=== PATIENT | female | born 1935 | race Caucasian/White ===

== ENCOUNTER 2019-01-06 19:39 | Emergency (ER) | payer OTHER ==
[~2019-01-06] VITALS: Ht 157.5 cm; Wt 67.1 kg
[~2019-01-06 19:39] MED LIST: AMITRIPTYLINE H25 M2 PO; ASPIRIN EC81 M1 PO; BIOFREEZE PAI3840 GM TOP; CELEBREX 200 M200 MG PO; CIPRO500 MG PO; DARVOCET A5001 EAC1 PO; DIPHENOXYLATE/A1 TA1 PO; FISH OIL 1,001000 M2 PO; FISH OIL SOFTG1 EACH PO; FLAGYL500 MG PO; GINKGO BILOBA120 MG PO; GLUCOPHAGE500 MG PO; GLYBURIDE 5 MG T5 M1 GT; GLYBURIDE 5 MG T5 MG; MULTIVITAMINS PO; NEURONTIN 400400 M1 PO; NORCO 5-325 TA1 EACH PO; PREDNISONE50 MG PO; VITCB500GO PO; [UNRECOGNIZED DRUG - OTHER] TOP
[2019-01-06] MEDS ORDERED: LISINOPRIL2.5 MG PO (19:52)
[2019-01-06] MEDS ORDERED: LIPITOR 20 MG T20 M1 PO (19:52)
[2019-01-06] MEDS ORDERED: BENTYL 20 MG TA20 M1 PO (19:53)
[2019-01-06 20:34] LABS: ABSOLUTE BASOPHILS 0.1 thou/uL (0.0-0.2); ABSOLUTE EOSINOPHILS 0.7 thou/uL (0.0-0.7); ABSOLUTE NEUTROPHILS 5.5 thou/uL (1.6-8.1); BASOPHILS 0.7 %; EOSINOPHILS 7.5 %; LYMPHOCYTES 21.9 %; MCH 31.4 pg (26.0-34.0); MCHC 34.5 g/dL (28.0-37.0); MONOCYTES 11.1 %; MPV 6.9 fl. (7.2-11.1); NUCLEATED RBCS 0 /100WBC; PLATELET COUNT* 131 thou/uL (150-400); POLYS 58.8 %; RBC 3.19 mil/uL (4.20-5.00); RDW-CV 12.6 % (10.5-14.5); WBC 9.3 thou/uL (4.0-11.0)
[2019-01-06 20:40] LABS: ANION GAP 11 mmol/L (7-16); BUN 26 mg/dL (7-18); CALCIUM 8.9 mg/dL (8.5-10.1); CHLORIDE 102 mmol/L (98-107); CO2 24 mmol/L (21-32); CREATININE 1.3 mg/dL (0.6-1.3); GLUCOSE 126 mg/dL (70-99); POTASSIUM 4.5 mmol/L (3.5-5.1); SODIUM 137 mmol/L (136-145)
[2019-01-06 20:57] LABS: ALBUMIN 3.3 g/dL (3.4-5.0); ALKALINE PHOSPHATASE 56 U/L (46-116); NT-PRO BRAIN NAT PEPTIDE 393 pg/mL (<300); SGOT 23 U/L (15-37); SGPT 19 U/L (30-65); TOTAL BILIRUBIN 0.8 mg/dL (<0.1-1.0); TOTAL PROTEIN 6.8 g/dL (6.4-8.2); TROPONIN-I LEVEL <0.06 ng/mL (<0.06)
[2019-01-06] MEDS ORDERED: PREDNISONE50 MG PO (21:45)
[2019-01-06] MEDS ORDERED: PROAIR HFA8.5 GM INH (21:45)
[2019-01-06] MEDS ORDERED: BACTRIM DS TAB1 EACH PO (21:48)
[2019-01-06 22:03] VITALS: BP 126/66
--- NOTE | 2019-01-09 12:17 | EKG ---
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 : 1935 Requested By: Yamila London Order Number: [id number] MD: Leopoldo Marcelino Measurements Intervals [place] Rate: 61 P: 26 SC: 185 QRS: -26 QRSD: 99 T: 6 QT: 446 QTc: 450 Interpretive Statements Sinus rhythm Borderline left axis deviation Abnormal R-wave progression, early transition Compared to ECG 08/07/2016 18:44:41 T-wave abnormality no longer present Prolonged QT interval no longer present Electronically Signed On 01-09-2019 12:17:18 CDT by Leopoldo Marcelino [email or web address] <ELECTRONICALLY SIGNED> By: Leopoldo Marcelino MD, [facility] 01/09/19 1217 14 14 Leopoldo Marcelino MD, [facility] /EPI
== END 2019-01-06 22:04 | disposition home or self-care (01) ==
LOC: M.ERS 19:39
PROVIDERS: Emergency Medicine
DX: T65.891A Toxic effect of other specified substances, accidental (unintentional), initial encounter (principal); J68.0 Bronchitis and pneumonitis due to chemicals, gases, fumes and vapors; E11.9 Type 2 diabetes mellitus without complications; M19.90 Unspecified osteoarthritis, unspecified site; M79.7 Fibromyalgia; Z90.49 Acquired absence of other specified parts of digestive tract; Z90.710 Acquired absence of both cervix and uterus; Z88.0 Allergy status to penicillin; Z88.5 Allergy status to narcotic agent; Z88.8 Allergy status to other drugs, medicaments and biological substances

== ENCOUNTER 2019-01-15 17:00 | Inpatient (IN) | payer OTHER ==
[~2019-01-15] VITALS: Ht 157.5 cm; Wt 68.0 kg
[~2019-01-15 17:00] MED LIST changes: +BACTRIM DS TAB1 EACH PO; +BENTYL 20 MG TA20 M1 PO; +LIPITOR 20 MG T20 M1 PO; +LISINOPRIL2.5 MG PO; +PROAIR HFA8.5 GM INH
[2019-01-15 17:08] VITALS: BP 69/44
[2019-01-15 17:25] LABS: HEMATOCRIT 37.2 % (37.0-47.0); HEMOGLOBIN 12.5 gm/dL (12.0-15.0); MCH 30.5 pg (26.0-34.0); MCHC 33.7 g/dL (28.0-37.0); MCV 90.4 fL (80.0-100.0); MPV 6.8 fl. (7.2-11.1); NUCLEATED RBCS 0 /100WBC; PLATELET COUNT* 278 thou/uL (150-400); RBC 4.12 mil/uL (4.20-5.00); RDW-CV 12.8 % (10.5-14.5)
[2019-01-15 17:32] LABS: ANION GAP 9 mmol/L (7-16); BUN 35 mg/dL (7-18); CALCIUM 8.5 mg/dL (8.5-10.1); CHLORIDE 95 mmol/L (98-107); CO2 25 mmol/L (21-32); CREATININE 1.5 mg/dL (0.6-1.3); GLUCOSE 335 mg/dL (70-99); POTASSIUM 4.6 mmol/L (3.5-5.1); SODIUM 129 mmol/L (136-145)
[2019-01-15 17:42] LABS: ALBUMIN 3.3 g/dL (3.4-5.0); ALKALINE PHOSPHATASE 70 U/L (46-116); SGOT 21 U/L (15-37); SGPT 44 U/L (30-65); TOTAL BILIRUBIN 0.8 mg/dL (<0.1-1.0); TOTAL PROTEIN 6.8 g/dL (6.4-8.2); TROPONIN-I LEVEL <0.06 ng/mL (<0.06)
[2019-01-15 17:50] LABS: PROTIME 10.1 Seconds (9.20-11.50)
[2019-01-15 17:52] LABS: ABSOLUTE EOSINOPHILS 0.3 thou/uL (0.0-0.7); ABSOLUTE LYMPHOCYTES 1.9 thou/uL (0.8-5.3); ABSOLUTE NEUTROPHILS 12.8 thou/uL (1.6-8.1)
[2019-01-15 17:53] LABS: PLATELET ESTIMATE ADEQUATE
--- NOTE | 2019-01-15 18:09 | NUR ---
PT STRAIGHT CATHED FOR URINE SAMPLE
[2019-01-15 18:15] LABS: URINE BILIRUBIN NEGATIVE (Negative); URINE BLOOD NEGATIVE (Negative); URINE CLARITY CLEAR; URINE COLOR YELLOW; URINE GLUCOSE-RANDOM 2+ (Negative); URINE KETONES NEGATIVE (Negative); URINE LEUKOCYTES-REFLEX NEGATIVE (Negative); URINE NITRITE-REFLEX NEGATIVE (Negative); URINE PROTEIN NEGATIVE (Negative); URINE UROBILINOGEN 0.2 E.U./dl (0.2-1.0)
[2019-01-15 19:57] VITALS: BP 100/55
[2019-01-15 20:15] VITALS: BP 125/62
[2019-01-16] VITALS: BP 117/50
--- NOTE | 2019-01-16 03:40 | NUR ---
RECEIVED REPORT AND ASSUMED CARE AT 1999. PT TRANSPORTED FROM ED TO ROOM 212.VSS. CARDIAC MONITORING IN PLACE. PT DENIES COMPLAINTS OF PAIN. ORIENTATED TO ROOM, CALL LIGHT, FALL POLICY. PT UP WITH ASSIST TO BSC.ON RA. ASSESSMENT COMPLETED CHARTED, ADMISSION COMPLETED CHARTED. BED LOCKED IN LOWEST POSITION, CALL LIGHT WITHIN REACH, BED ALARM ON
[2019-01-16 04:00] VITALS: BP 102/51
[2019-01-16 06:06] LABS: ALBUMIN 2.6 g/dL (3.4-5.0); CALCIUM 8.2 mg/dL (8.5-10.1); POTASSIUM 5.1 mmol/L (3.5-5.1); TOTAL BILIRUBIN 0.6 mg/dL (<0.1-1.0); TOTAL PROTEIN 6.1 g/dL (6.4-8.2)
[2019-01-16 08:00] VITALS: BP 108/54
[2019-01-16 08:15] LABS: HEMATOCRIT 33.9 % (37.0-47.0); HEMOGLOBIN 11.5 gm/dL (12.0-15.0); MCH 30.8 pg (26.0-34.0); MCV 90.6 fL (80.0-100.0); MPV 6.7 fl. (7.2-11.1); RBC 3.74 mil/uL (4.20-5.00); RDW-CV 12.7 % (10.5-14.5); WBC 10.6 thou/uL (4.0-11.0)
--- NOTE | 2019-01-16 09:59 | NUR ---
assumed pt care at 0730, full assesment done as charted. pt a/o x4, states she is "feeling better", VSS, SR on the monitor. pt up with assist to BR. maintains isolation precautions for possible shingles. pt has good apitite. up to chair for bath this am. will continue with plan of care.
[2019-01-16 11:54] VITALS: BP 123/74
--- NOTE | 2019-01-16 16:02 | NUR ---
Pt is A&O. Resides at home alone. Independent. Pt uses a cane for mobility, Pt also has a wc that she can use. No hx of HH. Hx of skilled at [facility] at [place]. Goal is home at or, Pt would want to return to [facility] if skilled is needed. Following.
[2019-01-16 16:04] VITALS: BP 107/50
--- NOTE | 2019-01-16 16:08 | EKG ---
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 01/16/19 1608 1718 Esteban Laws MD, [facility] /EPI
--- NOTE | 2019-01-16 19:07 | NUR ---
PT PROGRESSING TOWARD GOALS. UP WITH PT THIS AFTERNOON. STATES SHE IS STILL FEELING WEAK AND WANTS"TO FIND OUT WHAT IS WRONG WHILE I AM HERE". PT HAS GOOD APITITE. VSS, REMAINS SR ON THE MONITOR. FALL PRECAUTIONS IN PLACE. ISOLATION MAINTAINED FOR POSSIBLE SHINGLES.
[2019-01-16 19:30] VITALS: BP 130/97
--- NOTE | 2019-01-16 23:56 | NUR ---
RECEIVED REPORT AND ASSUMED CARE AT 1900. VSS. CARDIAC MONITORING IN PLACE. PT DENIES COMPLAINTS OF PAIN. ASSESSMENT COMPLETED CHARTED. PT UP WITH ASSIST WITH WALKER TO THE BATHROOM, ON RA. BED LOCKED IN LOWEST POSITION, CALL LIGHT WITHIN REACH, BED ALARM ON.
[2019-01-17] VITALS: BP 128/60
[2019-01-17 04:00] VITALS: BP 111/61
[2019-01-17 05:32] LABS: CREATININE 1.1 mg/dL (0.6-1.3); MAGNESIUM 1.9 mg/dL (1.8-2.4); POTASSIUM 5.1 mmol/L (3.5-5.1)
[2019-01-17 08:40] VITALS: BP 121/61
--- NOTE | 2019-01-17 10:24 | NUR ---
RECEIVED REPORT FROM RILEY AND ASSUMED CARE OF PT @ 2624.PT IS A/O X4,VSS,TRACING SR ON THE MONITOR.IV PATENT AND SALINE LOCKED.PT IS CALM AND COOPERATIVE WITH NO C/O PAIN.CONTACT ISOLATION MAINTAINED.PT IS UP WITH ASSIST AND WALKER.PT LEFT RESTING IN BED WITH CALL LIGHT AND FALL PRECAUTIONS IN PLACE.WILL CONTINUE TO MONITOR.
[2019-01-17 10:28] VITALS: BP 121/61
--- NOTE | 2019-01-17 10:32 | NUR ---
Pt discharging to home today with HH. Pt chose [facility], waiting to see if they can accept Pt for HH. Faxed order for walker to Margi at [facility], walker should be delivered within the hour.
--- NOTE | 2019-01-17 11:02 | NUR ---
PT OK FOR DISCHARGE.PAPERWORK COMPLETED AND GIVEN TO THE PT.NO SCRIPTS GIVEN.HOME HEALTH SET UP BY CASE MANAGEMENT.IV REMOVED.HEART MONITOR REMOVED AND RETUNRED TO THE NURSING STATION.ALL PERSONAL BELONGINGS PACKED AND TAKEN WITH PT.PT WHEELED OUT BY NURSING STAFF TO PERSONAL VEHICLE.
== END 2019-01-17 12:05 | disposition home health service (06) | DRG 73 ==
LOC: M.ERS 17:00 → M.TBA-ER 18:35 → M.2W 18:35
PROVIDERS: Family Medicine; Internal Medicine; Physician Assistant; ADMIT Internal Medicine
DX: E11.43 Type 2 diabetes mellitus with diabetic autonomic (poly)neuropathy (principal); N17.0 Acute kidney failure with tubular necrosis; E87.1 Hypo-osmolality and hyponatremia; E44.0 Moderate protein-calorie malnutrition; I95.2 Hypotension due to drugs; E86.9 Volume depletion, unspecified; B02.9 Zoster without complications; M79.7 Fibromyalgia; E11.40 Type 2 diabetes mellitus with diabetic neuropathy, unspecified; M19.90 Unspecified osteoarthritis, unspecified site; T67.9XXA Effect of heat and light, unspecified, initial encounter; X58.XXXA Exposure to other specified factors, initial encounter; J45.909 Unspecified asthma, uncomplicated; R29.6 Repeated falls; I10 Essential (primary) hypertension; Z79.899 Other long term (current) drug therapy; Z88.5 Allergy status to narcotic agent; Z88.7 Allergy status to serum and vaccine; Z88.8 Allergy status to other drugs, medicaments and biological substances; Z88.1 Allergy status to other antibiotic agents; Z91.012 Allergy to eggs; Z91.040 Latex allergy status; Z90.49 Acquired absence of other specified parts of digestive tract; Z68.27 Body mass index [BMI] 27.0-27.9, adult; Z86.718 Personal history of other venous thrombosis and embolism; Z79.51 Long term (current) use of inhaled steroids; Y93.89 Activity, other specified; Y92.89 Other specified places as the place of occurrence of the external cause; Y99.8 Other external cause status; Z79.84 Long term (current) use of oral hypoglycemic drugs; Z90.710 Acquired absence of both cervix and uterus; Z79.01 Long term (current) use of anticoagulants; Z88.0 Allergy status to penicillin; T46.4X5A Adverse effect of angiotensin-converting-enzyme inhibitors, initial encounter; Z82.49 Family history of ischemic heart disease and other diseases of the circulatory system

== ENCOUNTER 2019-07-01 12:55 | Inpatient (IN) | payer OTHER ==
[~2019-07-01] VITALS: Ht 152.4 cm; Wt 69.9 kg
[2019-07-01 13:13] VITALS: BP 149/56
[2019-07-01] MEDS ORDERED: MAGNESIUM250 M1 PO (13:18)
[2019-07-01] MEDS ORDERED: KLOR-CON M2020 MEQ PO (13:18)
[2019-07-01 13:46] LABS: ABSOLUTE BASOPHILS 0.1 thou/uL (0.0-0.2); ABSOLUTE EOSINOPHILS 0.1 thou/uL (0.0-0.7); ABSOLUTE LYMPHOCYTES 1.9 thou/uL (0.8-5.3); ABSOLUTE MONOCYTES 0.4 thou/uL (0.0-1.2); ABSOLUTE NEUTROPHILS 3.6 thou/uL (1.6-8.1); BASOPHILS 0.8 %; EOSINOPHILS 2.3 %; HEMATOCRIT 32.5 % (37.0-47.0); HEMOGLOBIN 11.5 gm/dL (12.0-15.0); LYMPHOCYTES 31.3 %; MCHC 35.3 g/dL (28.0-37.0); MCV 96.4 fL (80.0-100.0); MONOCYTES 6.4 %; NUCLEATED RBCS 0 /100WBC; PLATELET COUNT* 152 thou/uL (150-400); POLYS 59.2 %; RBC 3.38 mil/uL (4.20-5.00); RDW-CV 14.1 % (10.5-14.5); WBC 6.1 thou/uL (4.0-11.0)
[2019-07-01 13:54] LABS: BE -0.4 mmol/L (-2 to +3); PO2 98.6 mmHg (75.0-100.0); pH 7.487 (7.340-7.450)
[2019-07-01 13:55] LABS: CALCIUM 8.6 mg/dL (8.5-10.1); CREATININE 1.2 mg/dL (0.6-1.3); POTASSIUM 4.1 mmol/L (3.5-5.1)
[2019-07-01 13:58] LABS: APTT 23.7 Seconds (25.0-31.3); PROTIME 10.2 Seconds (9.20-11.50)
[2019-07-01 14:05] LABS: ALBUMIN 3.5 g/dL (3.4-5.0); TOTAL BILIRUBIN 0.5 mg/dL (<0.1-1.0); TOTAL PROTEIN 6.7 g/dL (6.4-8.2)
[2019-07-01 16:23] VITALS: BP 102/61
[2019-07-01 16:30] VITALS: BP 131/62
--- NOTE | 2019-07-01 18:39 | NUR ---
ASSUMED PT CARE REPORT RECEIVED FROM NURSE. PT IS AOX4, ON RA. LACTIC ACID 4.9. SEPSIS NEGATIVE.PT COMPLAINS OF CHILLS. HER TEMPERATURE IS 97.9 (ORAL). DENIES PAIN. ACCUCHECK. INSULIN GIVEN. ROCEPHIN IV GIVEN ORDERED. PT ATTACHED TO 2 L OF OXYGEN VIA NC DUE TO SOB COMPLAINT. O2 SATURATION IS 97%. FALL PRECAUTION IN PLACE. CALL LIGHT AT REACH. WILL CONTINUE TO MONITOR
[2019-07-01 20:00] VITALS: BP 105/56
[2019-07-01 23:54] VITALS: BP 114/50
[2019-07-02 04:00] VITALS: BP 95/56
[2019-07-02 05:08] LABS: INFLUENZA A ANTIGEN Negative (Negative); INFLUENZA B ANTIGEN Negative (Negative)
[2019-07-02 06:14] LABS: HEMATOCRIT 32.1 % (37.0-47.0); HEMOGLOBIN 11.2 gm/dL (12.0-15.0); MCH 33.6 pg (26.0-34.0); MCHC 34.8 g/dL (28.0-37.0); MCV 96.5 fL (80.0-100.0); MPV 6.8 fl. (7.2-11.1); RBC 3.33 mil/uL (4.20-5.00); RDW-CV 14.5 % (10.5-14.5); WBC 7.2 thou/uL (4.0-11.0)
[2019-07-02 06:31] LABS: CALCIUM 9.1 mg/dL (8.5-10.1); CREATININE 1.9 mg/dL (0.6-1.3); POTASSIUM 3.9 mmol/L (3.5-5.1)
[2019-07-02 08:00] VITALS: BP 114/51
--- NOTE | 2019-07-02 09:58 | EKG ---
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 07/02/19 0958 1334 33 Esteban Laws MD, [facility] /EPI
[2019-07-02 13:54] VITALS: BP 101/53
[2019-07-02 16:48] VITALS: BP 108/40
--- NOTE | 2019-07-02 17:50 | NUR ---
PT RESTING IN BED THROUGHOUT SHIFT. PT REPORTS "HAND CRAMPING". BG REMAIN ELEVATED. MEDS GIVEN FOR PAIN. IVF INFUSING. TOLERATING PO WELL
[2019-07-02 20:15] VITALS: BP 99/46
[2019-07-02 23:37] VITALS: BP 97/52
[2019-07-03 04:00] VITALS: BP 109/48; BP 109/49
--- NOTE | 2019-07-03 04:57 | NUR ---
PT SLEPT MOST OF SHIFT. ASSESSMENT DOCUMENTED. MEDS GIVEN PER E-MAR. IV PATENT, FLUIDS FINISHED INFUSING. PAIN MEDS GIVEN PER E-MAR WITH RELIEF. FALL PRECAUTIONS IN PLACE. WILL CONTINUE WITH PLAN OF CARE.
[2019-07-03 05:16] LABS: CALCIUM 8.3 mg/dL (8.5-10.1); CREATININE 1.7 mg/dL (0.6-1.3); POTASSIUM 4.5 mmol/L (3.5-5.1)
[2019-07-03 07:00] VITALS: BP 122/52
--- NOTE | 2019-07-03 10:00 | NUR ---
INITAL ASSESSMENT COMPLETED CHARTED. VSS. TRACING SR ON MONITOR. PT UP SBA WITH WALKER. PT C/O HANDS ARE ACHY. MEDICATIONS GIVEN PER EMAR. NO NEW CONCERNS AT THIS TIME. HOURLY ROUNDING AND FALL PRECAUTIONS IN PLACE FOR PT SAFETY. CLWR.
[2019-07-03 12:00] VITALS: BP 111/65
--- NOTE | 2019-07-03 15:04 | NUR ---
Pt is A&O. Resides at home alone. Independent. Pt uses a walker during the night, furniture walks during the day and uses a wc when out in the community. No hx of HH. Hx of medical center clinic at [facility]. Supportive family. Goal is home at de, Pt wants HH and chose [facility]. CM to fax referral at de. Following.
[2019-07-03 17:50] VITALS: BP 136/57
--- NOTE | 2019-07-03 18:16 | NUR ---
PATIENT ARRIVED TO UNIT ALERT AND ORIENTED X4. DENIES NEED FOR PAIN MEDICATION AT THIS TIME. AGREE WITH AM ASSESSMENT. V/S CHARTED. FALL PRECAUTIONS IN PLACE. CALL LIGHT WITHIN REACH.
[2019-07-03 20:00] VITALS: BP 110/69
--- NOTE | 2019-07-04 05:41 | NUR ---
ASSUMED CARE OF PT 07/03/19 AT APPROX 1930, PT A&OX4, PT ON ROOM AIR, VSS, NO COMPLAINTS THIS SHIFT, WILL CONTINUE TO MONITOR.
[2019-07-04 05:45] LABS: CALCIUM 8.6 mg/dL (8.5-10.1); CREATININE 1.3 mg/dL (0.6-1.3); MAGNESIUM 2.1 mg/dL (1.8-2.4); POTASSIUM 4.7 mmol/L (3.5-5.1)
[2019-07-04 05:54] LABS: HEMATOCRIT 30.7 % (37.0-47.0); HEMOGLOBIN 10.6 gm/dL (12.0-15.0); MCH 33.3 pg (26.0-34.0); MCHC 34.6 g/dL (28.0-37.0); MCV 96.5 fL (80.0-100.0); MPV 6.7 fl. (7.2-11.1); RBC 3.18 mil/uL (4.20-5.00); RDW-CV 14.5 % (10.5-14.5); WBC 10.3 thou/uL (4.0-11.0)
[2019-07-04 08:16] VITALS: BP 128/75
[2019-07-04 12:03] VITALS: BP 128/75
[2019-07-04] MEDS ORDERED: CEFDINIR300 MG PO (12:29)
[2019-07-04] MEDS ORDERED: MUCINEX1200 MG PO (12:29)
[2019-07-04] MEDS ORDERED: PROAIR HFA8.5 GM INH (12:29)
[2019-07-04] MEDS ORDERED: MEDROLDOSEPACK PO (12:29)
--- NOTE | 2019-07-04 13:02 | NUR ---
ASSUMED CARE OF PT AROUND 0730 THIS AM. REFER TO ASSESSMENT. PT EVAL'D BY PT AND OT AND DID NOT QUALIFY. ABLE TO DO ACTIVITIES OF DAILY LIVING INDEPENDENTLY. PT GIVEN DC INSTRUCTIONS. DISCUSSED WITH PT AND PT VERBALIZES UNDERSTANDING. PT WAITING FOR DAUGHTER TO RETURN TO TRANSPORT HOME. NO OTHER CONCERNS AT THIS TIME. CLWR. WCTM.
--- NOTE | 2019-07-04 15:51 | NUR ---
PT.DISCHARGED EARLIER. SHE WALKED LONG DISTANCES WITH WALKER AND P.T. WAS ABLE TO BATHE HERSELF WITH O.T. DID NOT QUALIFY FOR HH. SHE WAS MADE AWARE AND SAID SHE DIDN'T FEEL SHE NEEDED IT .
== END 2019-07-04 13:40 | disposition home or self-care (01) | DRG 193 ==
LOC: M.ERS 12:55 → M.2W 15:44 → M.TBA-ER 15:44 → M.ORTHSURG 15:44 → M.2W 16:50 → M.ORTHSURG 07-03 12:57
PROVIDERS: Family Medicine; ADMIT Internal Medicine
DX: J15.9 Unspecified bacterial pneumonia (principal); J96.00 Acute respiratory failure, unspecified whether with hypoxia or hypercapnia; J47.0 Bronchiectasis with acute lower respiratory infection; J45.901 Unspecified asthma with (acute) exacerbation; N17.9 Acute kidney failure, unspecified; M19.90 Unspecified osteoarthritis, unspecified site; M79.7 Fibromyalgia; G90.09 Other idiopathic peripheral autonomic neuropathy; K58.9 Irritable bowel syndrome, unspecified; E11.65 Type 2 diabetes mellitus with hyperglycemia; J06.9 Acute upper respiratory infection, unspecified; E11.22 Type 2 diabetes mellitus with diabetic chronic kidney disease; N18.2 Chronic kidney disease, stage 2 (mild); Z79.2 Long term (current) use of antibiotics; Z90.49 Acquired absence of other specified parts of digestive tract; Z90.89 Acquired absence of other organs; Z90.710 Acquired absence of both cervix and uterus; Z82.49 Family history of ischemic heart disease and other diseases of the circulatory system; Z86.718 Personal history of other venous thrombosis and embolism; Z91.018 Allergy to other foods; Z79.899 Other long term (current) drug therapy; Z79.01 Long term (current) use of anticoagulants; Z88.1 Allergy status to other antibiotic agents; Z91.040 Latex allergy status; Z88.0 Allergy status to penicillin; Z88.8 Allergy status to other drugs, medicaments and biological substances